=== PATIENT | female | born 1965 | race African-American/Black ===

== ENCOUNTER 2016-06-07 19:04 | Emergency (ER) | payer MEDICAID ==
[~2016-06-07] VITALS: Ht 162.6 cm; Wt 64.9 kg
[2016-06-07] MEDS ORDERED: OMEPRAZOLE20 MG PO (19:15)
[2016-06-07] MEDS ORDERED: MEDROXYPROGEST2.5 MG PO (19:16)
[2016-06-07] MEDS ORDERED: ALL DAY ALLERGY10 M2 PO (19:16)
[2016-06-07] MEDS ORDERED: FLUOXETINE20 MG PO (19:16)
[2016-06-07] MEDS ORDERED: TOPIRAMATE 25MG25 MG PO (19:17)
[2016-06-07] MEDS ORDERED: MENEST0.625 MG PO (19:17)
--- NOTE | 2016-06-07 19:17 | Emergency Room Report ---
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 PT STATES THAT SHE ALSO HAS BEEN FEELING SHORT OF BREATH AND DIZZY. PT STATES THAT SHE HAS ALSO BEEN FEELING SUICIDAL. PT STATES THAT THIS HAS BEEN GOING ON FOR OVER A MONTH. PT STATES THAT SHE HAS BEEN SEEING PSYCHIATRIST AT [facility] AND WAS PRESCRIBED MEDICINE. PT STATES THAT SHE HAS TRIED TO CALL DR BUT HAS BEEN UNABLE TO SPEAK WITH THEM. Onset of symptoms date/time:/ or onset unknown for:MEDICAL HX UNKNOWN Treatment Prior to Arrival: PT TRANSPORTED TO ED BY EMS. 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 N Clinical Suspician of Infection? N Mental Status: 1 - Regular (Normal Baseline) Sepsis Risk:Low Sepsis Risk Have you (or family members/close friends) recently traveled outside the [place]? N If Yes, where/when: Have you had exposure to infectious disease within the past month? N TB? Other? Specify: Source patient, RN notes reviewed, family, RN/MD Exam Limitations no limitations Comment This is a 51-year-old Afro-[place] lady presenting to the emergency for evaluation of a stabbing midsternal chest pain radiating to the LEFT side of the chest, off-and-on for the past one month. She feels short of breath and dizzy at times. She also stated that she has been feeling suicidal for approximately one month as well. She has recently been started on Seroquel and Remeron for her suicidal ideation by her psychiatrist in [place], [place] and patient has been thinking about overdosing / committing suicide on those 2 new pills. Patient stated that she has been hospitalized 6 times the past for suicidal ideation, in [facility]. She also had a heart attack in 2005. She tried to talk to her family physician today but she was unable to connect with him. ALLERGIES Coded Allergies: acetaminophen (06/07/16) amoxicillin (06/07/16) aspirin (06/07/16) bismuth subsalicylate (06/07/16) carbamazepine (06/07/16) divalproex sodium (06/07/16) ibuprofen (06/07/16) sertraline (From ZOLOFT) (06/07/16) valproic acid (06/07/16) Home Medications Reported Medications Omeprazole (Omeprazole 20MG) 20 MG PO DAILY Fluoxetine Hcl (Fluoxetine 20MG) 40 MG PO DAILY Cetirizine HCl (All Day Allergy) 10 MG PO DAILY Medroxyprogesterone Acetate (Medroxyprogesterone) 2.5 MG PO DAILY ESTROGENS,ESTERIFIED (Menest) 0.625 MG PO DAILY Topiramate (Topiramate 25MG Tablet) 25 MG PO BID Trazodone Hcl (Trazodone HCl) 200 MG PO QHS Cyclobenzaprine Hcl (Cyclobenzaprine 10MG) 10 MG PO QHS NAPROXEN (NAPROXEN 500MG TAB) 500 MG PO BID Metoprolol Tartrate (Metoprolol 25MG) 12.5 MG PO BID LISINOPRIL (Lisinopril) 10 MG PO DAILY Fluticasone Propionate (Flonase 50 Mcg Nasal [place]) 1 SPRAY NA BID Prednisone (Prednisone 10MG) 10 MG PO BID Hydrocort 0.5% Cream (Hydrocort 0.5% Cr 30 Gm.) 30 GM TP DAILY Albuterol (Albuterol-Hfa Inhaler) 1 PUFF IH Q4HP PRN BREATHING ASPIRIN (Aspirin) 81 MG PO DAILY Atorvastatin Calcium (Atorvastatin) 10 MG PO DAILY Vitamin B12 (Cyanocobalamin Injection) 1,000 MCG IM MONTHLY Ondansetron (Zofran 4MG Odt) 4 MG PO Q6HP PRN NAUSEA AND VOMITING Polyethylene Glycol 3350 (Miralax) 17 GM PO DAILY Hydroxyzine Pamoate (Hydroxyzine) 25 MG PO Q6HP PRN NERVES Mirtazapine (Remeron) 15 MG PO QHS Quetiapine Fumarate (Seroquel) 100 MG PO QHS (Stevan RALPH,Kurt Weinstein) History Medical History General CAD? No Angina: No SC: No Hypertension? Yes Hyperlipidemia? No CHF? No DVT? No PE? No COPD? No Asthma? No Anemia? No GERD? No Gastric ulcers? No GI Bleed? No Hernia? No Thyroid Problems? No Hypothyroidism? No CVA? No Seizures? Yes Diabetes? No Renal Insuffiency? No End Stage Renal Disease? No UTI? No Stones? No BPH? No GB Disease: No Nephritic Syndrome? No Asplenia? No Hepatitis? No Sickle Cell Disease? No Arthritis? Yes Migraines? Yes Cataracts? No Glaucoma? No MRSA? No HIV? No TB? No Anxiety? Yes Depression? Yes Cancer? No More? 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 Hx LMP N/A Social History Smoking Hx Smoker: Current Every Day Smoker Tobacco: Yes Type Cigarettes Packs/day < 1 Pack Are you/the child exposed to second-hand smoke: Yes Alcohol Alcohol: No (Stevan RALPH,Kurt Weinstein) Review of Systems All Other Systems Reviewed and Negative (Kurt Calles MD) Physical Exam Vital Signs Vital Signs Date Time Temp Pulse Resp B/P Pulse O2 O2 Flow FiO2 Ox Delivery Rate 06/08 0029 66 18 148/89 99 2 06/07 2330 69 18 133/85 98 2 06/07 2258 65 18 168/102 100 2 06/07 2212 68 20 157/110 100 2 06/07 2131 62 20 161/110 100 2 06/07 2041 98.2 65 20 154/105 100 01/02 1929 100 01/02 1905 98.8 75 18 150/90 100 2 General Appearance normal appearance, WD/WN, no apparent distress Neck normal inspection, non-tender, supple, full range of motion Respiratory Status Yes: trachea midline, chest symmetrical, non tender chest. No: respiratory distress. Lung Sounds bilateral: normal breath sounds, lungs clear. Cardiovascular normal exam, regular rate/rhythm, no peripheral edema, no gallop, no JVD, no murmur, no rub, normal peripheral pulses Gastrointestinal normal bowel sounds, normal exam, non tender, soft, no organomegaly Extremities non-tender, normal range of motion, normal inspection Neurologic alert, arts manager II-XII nml as tested, normal exam, oriented x 3 Mental status normal mood/affect Skin intact, normal color, warm/dry (Kurt Calles MD) Medical Decision Making LABS/Meds/Orders Pt receiving controlled substance in ED? No Comment 08:15pm-case signed out to Dr Mccracken pending labwork. Results/Orders Laboratory Tests 06/07/162049: Opiates Screen NEGATIVE, Urine Methadone Screen NEGATIVE, Barbiturates NEGATIVE, Phencyclidine Screen NEGATIVE, Amphetamines Screen NEGATIVE, Benzodiazepines Screen NEGATIVE, Cocaine Screen NEGATIVE, Marijuana (THC) Screen POSITIVE H, Urine Color DK YELLOW, Urine Appearance SL CLOUDY, Urine pH 6.0, Ur Specific [place] >= 1.030, Urine Protein 2+ H, Urine Ketones NEGATIVE, Urine Blood NEGATIVE, Urine Nitrate NEGATIVE, Urine Bilirubin NEGATIVE, Urine Urobilinogen 1.0, Ur Leukocyte Esterase NEGATIVE, Urine WBC 3-5, Ur Squamous Epith Cells 10- 20, Urine Bacteria 2+, Urine Mucus 2+, Urine Glucose NEGATIVE 06/07/161944: Sodium 142, Potassium 3.2 L, Chloride 109 H, Carbon Dioxide 26, BUN 7, Creatinine 1.1 H, Estimated Creat Clear 63, Estimated GFR (MDRD) 53 L, Glucose 89, Calcium 8.6, Total Bilirubin 0.2, AST 17, ALT 16, Alkaline Phosphatase 64, Creatine Kinase 89, CK and CKMB Interp 0.5, Troponin I < 0.02, Total Protein 6.8 , Albumin 2.7 L, Globulin 4.1 H, Albumin/Globulin Ratio 0.7 L 06/07/161849: TSH 2.22, Free T4 Index 4.8 L, Thyroxine (T4) 5.5, T3 Uptake 35, WBC 3.6 L, RBC 4.31, Hgb 12.1 L, Hct 37.4, MCV 86.6, RDW 19.4 H, Plt Count 146, MPV 11.6 H, Gran % 39.9, Gran # 1.4 L, Total Counted 100, Lymphocytes % 53.0 H, Monocytes % 5.2, Eosinophils % 1.1, Basophils % 0.7, Neutrophils 28 L, Lymphocytes (Manual) 66 H, Lymphocytes # 1.9, Monocytes (Manual) 6, Monocytes # 0.2, Eosinophils # 0.0, Basophils # 0.0, Platelet Estimate NORMAL, Hypochromasia 1+, Poikilocytosis 1+, Anisocytosis 1+, Macrocytosis 1+, Target Cells 1+, Acanthocytes (Spur) 1+, PUBS MCHC 32.3, MCH 28.0, Salicylates 5.5, Acetaminophen 0 L, Alcohols 0 Current Medication Orders Sig/Christine Start time Last Medication Dose Route Stop Time Status Admin Sodium Chloride 10 ML PRN PRN 06/07 1929 AC IV 06/08 1923 Orders Procedure Date/time Status CULTURE, URINE 06/07 2049 Active AA EXPRESSES SUICIDAL THOUGHTS 06/07 1926 Active GEN NSG/PT REQ (NOT FOR MEDS!) 06/07 1926 Active URINALYSIS/COMPLETE 06/07 1925 Complete THYROID PANEL 2 (WITH TSH) 06/07 1925 Complete SALICYLATE 06/07 1925 Complete DRUG ABUSE SCREEN (10) 06/07 1925 Complete ALCOHOL 06/07 1925 Complete Acetaminophen 06/07 1925 Complete 12 LEAD EKG-EVAN (INITIAL) 06/07 1924 Active ELECTROCARDIOGRAM REQUEST 06/07 1924 Active CHEST-PORTABLE 06/07 1924 Active IV SALINE LOCK 06/07 1924 Active OXYGEN PER NURSE 06/07 1924 Active 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 of ischemic chgs, no ectopy, normal QRS, normal [place], normal EKG, no EKG for comparison, non-spec. ST/Twave chgs, ST elevation, ST depression, LBBB, RBBB, ectopy, abnormal Q waves XRAY/CT/US XRAY/CT/US XRAY chest XR interpretation by reviewed by me Xray Results no infiltrates, normal heart size, normal lung inflation lsia (Stevan RALPH,Kurt Weinstein) Departure Departure Disposition DC Home or Self Care(routine) Clinical Impression Primary Impression: Chest pain Qualifiers: Chest pain type: unspecified Qualified Code: R07.9 - Chest pain, unspecified Secondary Impressions: Suicidal ideation Condition STABLE Referrals [facility] (Family) ED Critical Care Critical Care No (Kurt Calles MD) Departure Time of Disposition 0039 Patient Instructions DI for Atypical Chest Pain Additional Instructions see your pcp and therapist this week Discharge Counseling Counseled pt/family regarding diagnosis, test results, follow up needs Comments reports not suicidial (Nawaf RALPH,Tricia Bernard) at 2000
--- NOTE | 2016-06-07 19:17 | Emergency Room Report ---
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 PT STATES THAT SHE ALSO HAS BEEN FEELING SHORT OF BREATH AND DIZZY. PT STATES THAT SHE HAS ALSO BEEN FEELING SUICIDAL. PT STATES THAT THIS HAS BEEN GOING ON FOR OVER A MONTH. PT STATES THAT SHE HAS BEEN SEEING PSYCHIATRIST AT [facility] AND WAS PRESCRIBED MEDICINE. PT STATES THAT SHE HAS TRIED TO CALL DR BUT HAS BEEN UNABLE TO SPEAK WITH THEM. Onset of symptoms date/time:/ or onset unknown for:MEDICAL HX UNKNOWN Treatment Prior to Arrival: PT TRANSPORTED TO ED BY EMS. 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 N Clinical Suspician of Infection? N Mental Status: 1 - Regular (Normal Baseline) Sepsis Risk:Low Sepsis Risk Have you (or family members/close friends) recently traveled outside the [place]? N If Yes, where/when: Have you had exposure to infectious disease within the past month? N TB? Other? Specify: Source patient, RN notes reviewed, family, RN/MD Exam Limitations no limitations Comment This is a 51-year-old Afro-[place]ian lady presenting to the emergency for evaluation of a stabbing midsternal chest pain radiating to the LEFT side of the chest, off-and-on for the past one month. She feels short of breath and dizzy at times. She also stated that she has been feeling suicidal for approximately one month as well. She has recently been started on Seroquel and Remeron for her suicidal ideation by her psychiatrist in [place], [place] and patient has been thinking about overdosing / committing suicide on those 2 new pills. Patient stated that she has been hospitalized 6 times the past for suicidal ideation, in [facility]. She also had a heart attack in 2005. She tried to talk to her family physician today but she was unable to connect with him. ALLERGIES Coded Allergies: acetaminophen (06/07/16) amoxicillin (06/07/16) aspirin (06/07/16) bismuth subsalicylate (06/07/16) carbamazepine (06/07/16) divalproex sodium (06/07/16) ibuprofen (06/07/16) sertraline (From ZOLOFT) (06/07/16) valproic acid (06/07/16) Home Medications Reported Medications Omeprazole (Omeprazole 20MG) 20 MG PO DAILY Fluoxetine Hcl (Fluoxetine 20MG) 40 MG PO DAILY Cetirizine HCl (All Day Allergy) 10 MG PO DAILY Medroxyprogesterone Acetate (Medroxyprogesterone) 2.5 MG PO DAILY ESTROGENS,ESTERIFIED (Menest) 0.625 MG PO DAILY Topiramate (Topiramate 25MG Tablet) 25 MG PO BID Trazodone Hcl (Trazodone HCl) 200 MG PO QHS Cyclobenzaprine Hcl (Cyclobenzaprine 10MG) 10 MG PO QHS NAPROXEN (NAPROXEN 500MG TAB) 500 MG PO BID Metoprolol Tartrate (Metoprolol 25MG) 12.5 MG PO BID LISINOPRIL (Lisinopril) 10 MG PO DAILY Fluticasone Propionate (Flonase 50 Mcg Nasal [place]) 1 SPRAY NA BID Prednisone (Prednisone 10MG) 10 MG PO BID Hydrocort 0.5% Cream (Hydrocort 0.5% Cr 30 Gm.) 30 GM TP DAILY Albuterol (Albuterol-Hfa Inhaler) 1 PUFF IH Q4HP PRN BREATHING ASPIRIN (Aspirin) 81 MG PO DAILY Atorvastatin Calcium (Atorvastatin) 10 MG PO DAILY Vitamin B12 (Cyanocobalamin Injection) 1,000 MCG IM MONTHLY Ondansetron (Zofran 4MG Odt) 4 MG PO Q6HP PRN NAUSEA AND VOMITING Polyethylene Glycol 3350 (Miralax) 17 GM PO DAILY Hydroxyzine Pamoate (Hydroxyzine) 25 MG PO Q6HP PRN NERVES Mirtazapine (Remeron) 15 MG PO QHS Quetiapine Fumarate (Seroquel) 100 MG PO QHS (Stevan RALPH,Kurt Weinstein) History Medical History General CAD? No Angina: No LA: No Hypertension? Yes Hyperlipidemia? No CHF? No DVT? No PE? No COPD? No Asthma? No Anemia? No GERD? No Gastric ulcers? No GI Bleed? No Hernia? No Thyroid Problems? No Hypothyroidism? No CVA? No Seizures? Yes Diabetes? No Renal Insuffiency? No End Stage Renal Disease? No UTI? No Stones? No BPH? No GB Disease: No Nephritic Syndrome? No Asplenia? No Hepatitis? No Sickle Cell Disease? No Arthritis? Yes Migraines? Yes Cataracts? No Glaucoma? No MRSA? No HIV? No TB? No Anxiety? Yes Depression? Yes Cancer? No More? 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 LMP N/A Social History Smoking Hx Smoker: Current Every Day Smoker Tobacco: Yes Type Cigarettes Packs/day < 1 Pack Are you/the child exposed to second-hand smoke: Yes Alcohol Alcohol: No (Stevan RALPH,Kurt Weinstein) Review of Systems All Other Systems Reviewed and Negative (Kurt Calles MD) Physical Exam Vital Signs Vital Signs Date Time Temp Pulse Resp B/P Pulse O2 O2 Flow FiO2 Ox Delivery Rate 06/08 0029 66 18 148/89 99 2 06/07 2330 69 18 133/85 98 2 06/07 2258 65 18 168/102 100 2 06/07 2212 68 20 157/110 100 2 06/07 2131 62 20 161/110 100 2 06/07 2041 98.2 65 20 154/105 100 01/02 1929 100 01/02 1905 98.8 75 18 150/90 100 2 General Appearance normal appearance, WD/WN, no apparent distress Neck normal inspection, non-tender, supple, full range of motion Respiratory Status Yes: trachea midline, chest symmetrical, non tender chest. No: respiratory distress. Lung Sounds bilateral: normal breath sounds, lungs clear. Cardiovascular normal exam, regular rate/rhythm, no peripheral edema, no gallop, no JVD, no murmur, no rub, normal peripheral pulses Gastrointestinal normal bowel sounds, normal exam, non tender, soft, no organomegaly Extremities non-tender, normal range of motion, normal inspection Neurologic alert, chiropractic care II-XII nml as tested, normal exam, oriented x 3 Mental status normal mood/affect Skin intact, normal color, warm/dry (Kurt Calles MD) Medical Decision Making LABS/Meds/Orders Pt receiving controlled substance in ED? No Comment 08:15pm-case signed out to Dr Mccracken pending labwork. Results/Orders Laboratory Tests 06/07/162049: Opiates Screen NEGATIVE, Urine Methadone Screen NEGATIVE, Barbiturates NEGATIVE, Phencyclidine Screen NEGATIVE, Amphetamines Screen NEGATIVE, Benzodiazepines Screen NEGATIVE, Cocaine Screen NEGATIVE, Marijuana (THC) Screen POSITIVE H, Urine Color DK YELLOW, Urine Appearance SL CLOUDY, Urine pH 6.0, Ur Specific [place] >= 1.030, Urine Protein 2+ H, Urine Ketones NEGATIVE, Urine Blood NEGATIVE, Urine Nitrate NEGATIVE, Urine Bilirubin NEGATIVE, Urine Urobilinogen 1.0, Ur Leukocyte Esterase NEGATIVE, Urine WBC 3-5, Ur Squamous Epith Cells 10- 20, Urine Bacteria 2+, Urine Mucus 2+, Urine Glucose NEGATIVE 06/07/161944: Sodium 142, Potassium 3.2 L, Chloride 109 H, Carbon Dioxide 26, BUN 7, Creatinine 1.1 H, Estimated Creat Clear 63, Estimated GFR (MDRD) 53 L, Glucose 89, Calcium 8.6, Total Bilirubin 0.2, AST 17, ALT 16, Alkaline Phosphatase 64, Creatine Kinase 89, CK and CKMB Interp 0.5, Troponin I < 0.02, Total Protein 6.8 , Albumin 2.7 L, Globulin 4.1 H, Albumin/Globulin Ratio 0.7 L 06/07/161849: TSH 2.22, Free T4 Index 4.8 L, Thyroxine (T4) 5.5, T3 Uptake 35, WBC 3.6 L, RBC 4.31, Hgb 12.1 L, Hct 37.4, MCV 86.6, RDW 19.4 H, Plt Count 146, MPV 11.6 H, Gran % 39.9, Gran # 1.4 L, Total Counted 100, Lymphocytes % 53.0 H, Monocytes % 5.2, Eosinophils % 1.1, Basophils % 0.7, Neutrophils 28 L, Lymphocytes (Manual) 66 H, Lymphocytes # 1.9, Monocytes (Manual) 6, Monocytes # 0.2, Eosinophils # 0.0, Basophils # 0.0, Platelet Estimate NORMAL, Hypochromasia 1+, Poikilocytosis 1+, Anisocytosis 1+, Macrocytosis 1+, Target Cells 1+, Acanthocytes (Spur) 1+, PUBS MCHC 32.3, MCH 28.0, Salicylates 5.5, Acetaminophen 0 L, Alcohols 0 Current Medication Orders Sig/Christine Start time Last Medication Dose Route Stop Time Status Admin Sodium Chloride 10 ML PRN PRN 06/07 1929 AC IV 06/08 1923 Orders Procedure Date/time Status CULTURE, URINE 06/07 2049 Active AA EXPRESSES SUICIDAL THOUGHTS 06/07 1926 Active GEN NSG/PT REQ (NOT FOR MEDS!) 06/07 1926 Active URINALYSIS/COMPLETE 06/07 1925 Complete THYROID PANEL 2 (WITH TSH) 06/07 1925 Complete SALICYLATE 06/07 1925 Complete DRUG ABUSE SCREEN (10) 06/07 1925 Complete ALCOHOL 06/07 1925 Complete Acetaminophen 06/07 1925 Complete 12 LEAD EKG-EVAN (INITIAL) 06/07 1924 Active ELECTROCARDIOGRAM REQUEST 06/07 1924 Active CHEST-PORTABLE 06/07 1924 Active IV SALINE LOCK 06/07 1924 Active OXYGEN PER NURSE 06/07 1924 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 of ischemic chgs, no ectopy, normal QRS, normal [place], normal EKG, no EKG for comparison, non-spec. ST/Twave chgs, ST elevation, ST depression, LBBB, RBBB, ectopy, abnormal Q waves XRAY/CT/US XRAY/CT/US XRAY chest XR interpretation by reviewed by me Xray Results no infiltrates, normal heart size, normal lung inflation lisa (Stevan RALPH,Kurt Weinstein) Departure Departure Disposition DC Home or Self Care(routine) Clinical Impression Primary Impression: Chest pain Qualifiers: Chest pain type: unspecified Qualified Code: R07.9 - Chest pain, unspecified Secondary Impressions: Suicidal ideation Condition STABLE Referrals [facility] (Family) ED Critical Care Critical Care No (Kurt Calles MD) Departure Time of Disposition 0039 Patient Instructions DI for Atypical Chest Pain Additional Instructions see your pcp and therapist this week Discharge Counseling Counseled pt/family regarding diagnosis, test results, follow up needs Comments reports not suicidial (Nawaf RALPH,Tricia Bernard) at 2000
[2016-06-07] MEDS ORDERED: TRAZODONE100 MG PO (19:18)
[2016-06-07] MEDS ORDERED: NAPROXEN SODIU500 MG PO (19:18)
[2016-06-07] MEDS ORDERED: CYCLOBENZAPRINE10 MG PO (19:18)
[2016-06-07] MEDS ORDERED: FLONASE 50 MCG16 GM (19:19)
[2016-06-07] MEDS ORDERED: METOPROLOL 25 M25 MG PO (19:19)
[2016-06-07] MEDS ORDERED: ZESTRIL 10MG TA10 MG PO (19:19)
[2016-06-07] MEDS ORDERED: HYDROCORT TP (19:20)
[2016-06-07] MEDS ORDERED: PREDNISONE 10MG10 MG PO (19:20)
[2016-06-07] MEDS ORDERED: ALBUTEROL-200 PUFFS/ IH (19:21)
[2016-06-07] MEDS ORDERED: ASPIRIN 81MG TA81 MG PO (19:21)
[2016-06-07] MEDS ORDERED: LIPITOR40 MG PO (19:21)
[2016-06-07] MEDS ORDERED: ZOFRAN ODT4 MG PO (19:22)
[2016-06-07] MEDS ORDERED: B12 INJ.,1000 MCG/M IM (19:22)
[2016-06-07] MEDS ORDERED: MIRALAX17 GM/PACK PO (19:22)
[2016-06-07] MEDS ORDERED: HYDROXYZINE 25M25 MG PO (19:23)
[2016-06-07] MEDS ORDERED: REMERON15 MG PO (19:23)
[2016-06-07] MEDS ORDERED: SEROQUEL100 MG PO (19:24)
[2016-06-07 19:35] LABS: HEMOGLOBIN 12.1 g/dL (12.2-16.2); LYMPH # 1.9 K/mm3 (0.7-4.5)
[2016-06-07 20:14] LABS: BUN 7 mg/dL (7-18)
[2016-06-07 20:15] LABS: GFR (ESTIMATED) 53 ML/MIN (59-)
[2016-06-07 20:26] LABS: FREE THYROXIN INDEX 4.8 ug/dl (5.93-13.13)
[2016-06-07 20:55] LABS: NEUTROPHILS 28 % (42-76)
[2016-06-07 21:04] LABS: URINE BILIRUBIN - DIPSTICK NEGATIVE (NEG); URINE BLOOD NEGATIVE (NEG)
[2016-06-07 21:11] LABS: AMPHETAMINES/METAMPHETAMINES NEGATIVE ng/mL (<1000)
--- NOTE | 2016-06-08 06:17 | RADIOLOGY REPORT PS360 ---
CHEST-PORTABLE HISTORY: chest pain COMPARISON: None available FINDINGS: The cardiomediastinal silhouette and pulmonary vascularity are within normal limits. The lungs are clear without infiltrates, suspicious nodules, or pleural effusions. No acute bony abnormalities. IMPRESSION: Negative chest, no acute finding
[2016-06-08 09:16] VITALS: BP 158/97
== END 2016-06-08 09:17 | disposition home or self-care (01) ==
LOC: ER 19:04
PROVIDERS: Emergency Medicine
DX: R07.9 Chest pain, unspecified (principal); I10 Essential (primary) hypertension; Z72.0 Tobacco use; R45.851 Suicidal ideations
CPT/HCPCS: G6040